=== PATIENT | female | born 1955 | race Caucasian/White ===

== ENCOUNTER 2017-08-04 11:54 | Inpatient (IN) | payer OTHER, BC ==
[~2017-08-04 11:54] MED LIST: CEFAZOLIN 2 GM/50 ML (PMX) 50 ML IVPB; TRANEXAMIC ACID 1,000 MG in DEXTROSE 5% 100 ML IV
[2017-08-04] MEDS: LACTATED RINGER'S 1,000 ML IV* (12:30)
[2017-08-04] MEDS ORDERED: TRANEXAMIC ACID 1,000 MG in D5W 100 ML AT INCISION X1 IVPB (12:30)
[2017-08-04] MEDS ORDERED: TRANEXAMIC ACID 1,000 MG in D5W 100 ML AT CLOSURE X1 IVPB (12:30)
[2017-08-04] MEDS ORDERED: ONDANSETRON 4 MG INJ (13:54)
[2017-08-04] MEDS ORDERED: FENTAnyl 50 MCG/ML VIAL ×2 (13:54→17:21)
[2017-08-04] MEDS ORDERED: DEXAMETHASONE 4 MG/ML 1 ML INJ (13:54)
[2017-08-04] MEDS ORDERED: GLYCOPYRROLATE 0.4 MG INJ (13:54)
[2017-08-04] MEDS ORDERED: BUPIVACAINE 0.75%/DEXT (SPINAL) 2 ML INJ (13:54)
[2017-08-04] MEDS ORDERED: NEOSTIGMINE 3 MG/3 ML SYRINGE (13:54)
[2017-08-04] MEDS ORDERED: MIDAZOLAM 1 MG/ML 2 ML INJ (13:54)
[2017-08-04] MEDS ORDERED: ROCURONIUM 50 MG INJ (13:54)
[2017-08-04] MEDS ORDERED: CEFAZOLIN 1 GM INJ (13:54)
[2017-08-04] MEDS ORDERED: PROPOFOL 20 ML (13:54)
[2017-08-04] MEDS: HYDROmorphONE 0.5 MG/0.5 ML SYG IV ×2 (14:49→23:35)
[2017-08-04] MEDS: POLYMYXIN/BACITRACIN 1L IRRIG IRR (17:37)
[2017-08-04] MEDS ORDERED: HYDROmorphONE (0.2 MG/ML) 10ML SYG IV ×2 (18:00)
[2017-08-04] MEDS ORDERED: EPHEDrine SULFATE 50 MG/5 ML SYG IV (18:00)
[2017-08-04] MEDS ORDERED: ALBUTEROL 0.083% (NEB) 2.5 MG/3 ML AMP HHN (18:00)
[2017-08-04] MEDS ORDERED: OXYCODONE/ACETAMINOPHEN (5/325) TAB PO ×2 (18:00)
[2017-08-04] MEDS ORDERED: IPRATROPIUM (NEB) 0.5 MG/2.5 ML AMP HHN (18:00)
[2017-08-04] MEDS ORDERED: LABETALOL HCL 20MG INJ IV (18:00)
[2017-08-04] MEDS ORDERED: DIPHENHYDRAMINE 50 MG INJ IV (18:00)
[2017-08-04] MEDS ORDERED: hydrALAzine 20 MG INJ IV (18:00)
[2017-08-04] MEDS ORDERED: ONDANSETRON 4 MG INJ IV (18:00)
[2017-08-04] MEDS ORDERED: MIDAZOLAM 1 MG/ML 2 ML INJ IV (18:00)
[2017-08-04] MEDS ORDERED: FENTAnyl 50 MCG/ML VIAL IV ×2 (18:00)
[2017-08-04] MEDS ORDERED: TRIMETHOBENZAMIDE 100 MG/ML VIAL IM ×2 (18:00→18:30)
[2017-08-04] MEDS ORDERED: NALOXONE (0.4 MG/ML) INJ IV (18:30)
[2017-08-04] MEDS ORDERED: oxyCODONE 5 MG TAB PO (18:30)
[2017-08-04] MEDS ORDERED: SENNA/DOCUSATE NA (8.6MG/50MG) TAB PO (18:30)
[2017-08-04] MEDS ORDERED: BISACODYL 10 MG SUPP PR (18:30)
[2017-08-04] MEDS ORDERED: NA PHOSPHATE/BIPHOS 133 ML ENEMA PR (18:30)
[2017-08-04] MEDS ORDERED: MAGNESIUM HYDROXIDE 30ML CUP PO (18:30)
[2017-08-04] MEDS: CEFAZOLIN 1 GM/50 ML (PMX) 50 ML IVPB (18:30)
[2017-08-04] MEDS ORDERED: NACL 0.9% 3 ML SYG IV (18:30)
[2017-08-04] MEDS ORDERED: SUGAMMADEX SODIUM 200 MG/2 ML VIAL IV (18:46)
[2017-08-04] MEDS: DOCUSATE SODIUM 100 MG CAP PO (19:25)
[2017-08-04] MEDS: ASPIRIN (EC) 325 MG TAB PO (19:25)
[2017-08-04] MEDS: MEPERIDINE 25 MG INJ IV (19:28)
[2017-08-04] MEDS: FENTAnyl 50 MCG/ML VIAL IV ×3 (19:28→20:43)
[2017-08-04] MEDS: HYDROmorphONE (0.2 MG/ML) 10ML SYG IV ×2 (19:29→20:31)
[2017-08-04] MEDS: CEFAZOLIN 2 GM/50 ML (PMX) 50 ML IVPB (19:29)
[2017-08-04] MEDS: ONDANSETRON 4 MG INJ IV ×2 (19:30→23:42)
[2017-08-04] MEDS: DIPHENHYDRAMINE 50 MG INJ IM (19:41)
[2017-08-04] MEDS: GABAPENTIN 100 MG CAP PO (20:44)
[2017-08-04] MEDS: SOD CHLORIDE 0.9% 1,000 ML IV (22:30)
[2017-08-04] MEDS: oxyCODONE 5 MG TAB PO (22:46)
[2017-08-04] MEDS: ACETAMINOPHEN 1000MG/100ML IV 100 ML IVPB (23:37)
[2017-08-05] MEDS: NICOTINE (14 MG/24 HR) PATCH TRANSDERM ×2 (00:06→08:58)
[2017-08-05] MEDS: HYDROmorphONE 0.5 MG/0.5 ML SYG IV ×7 (01:26→20:56)
[2017-08-05] MEDS: oxyCODONE 5 MG TAB PO ×6 (03:23→22:47)
[2017-08-05] MEDS: CEFAZOLIN 1 GM/50 ML (PMX) 50 ML IVPB ×2 (03:26→10:42)
[2017-08-05] MEDS: ALPRAZOLAM 0.25 MG TAB PO (03:50)
[2017-08-05 05:43] LABS: ADD MAN DIFF? NO
[2017-08-05 05:48] LABS: WHITE BLOOD COUNT 10.1 10^3/ul (4.8-10.8)
[2017-08-05 05:48] LABS: BASOPHILS % 0.1 % (0.0-2.0); EOSINOPHILS % 0.1 % (0.0-7.0); HEMATOCRIT 26.6 % (37.0-47.0); HEMOGLOBIN 9.1 g/dl (12.0-16.0); LYMPHOCYTES % 9.4 % (15.0-51.0); MEAN CORPUSCULAR HEMOGLOBIN 31.1 pg (29.0-33.0); MEAN CORPUSCULAR HGB CONC 34.2 g/dl (32.0-37.0); MEAN CORPUSCULAR VOLUME 90.8 fl (82.0-101.0); MEAN PLATELET VOLUME 9.3 fl (7.4-10.4); MONOCYTE # 0.7 10^3/ul (0.3-0.9); MONOCYTES % 7.3 % (0.0-11.0); NEUTROPHIL # 8.3 10^3/ul (1.6-7.5); NEUTROPHILS % 82.7 % (39.0-77.0); PLATELET COUNT 278 10^3/UL (140-415); RED BLOOD COUNT 2.93 10^6/ul (4.20-5.40); RED CELL DISTRIBUTION WIDTH 12.9 % (11.5-14.5)
[2017-08-05] MEDS ORDERED: hydrALAzine 20 MG INJ IV (06:30)
[2017-08-05] MEDS: ONDANSETRON 4 MG INJ IV ×2 (06:34→12:43)
[2017-08-05] MEDS: ACETAMINOPHEN 1000MG/100ML IV 100 ML IVPB ×3 (06:34→21:06)
[2017-08-05] MEDS: PANTOPRAZOLE (EC) 40 MG TAB PO (06:34)
[2017-08-05] MEDS: SOD CHLORIDE 0.9% 1,000 ML IV ×2 (06:34→17:04)
[2017-08-05] MEDS: BETHANECHOL 25 MG TAB PO (06:34)
[2017-08-05 06:39] LABS: ANION GAP 9 (8-16); BLOOD UREA NITROGEN 11 mg/dl (7-20); CALCIUM 8.3 mg/dl (8.4-10.2); CARBON DIOXIDE 29 mmol/L (21-31); CHLORIDE 104 mmol/L (97-110); GLUCOSE 114 mg/dl (70-220); POTASSIUM 4.4 mmol/L (3.5-5.1); SODIUM 138 mmol/L (135-144)
[2017-08-05 06:49] LABS: IRON 40 ug/dl (35-150)
[2017-08-05 07:01] LABS: % IRON SATURATION 15 % SAT (22-52); TOTAL IRON BINDING CAPACITY 262 ug/dl (241-421)
[2017-08-05 08:46] LABS: ADD UMIC NO; UR ASCORBIC ACID NEGATIVE (NEGATIVE); UR BILIRUBIN (Dip) NEGATIVE (NEGATIVE); UR BLOOD (Dip) NEGATIVE (NEGATIVE); UR CLARITY CLEAR (CLEAR); UR COLOR YELLOW (YELLOW); UR GLUCOSE (Dip) NEGATIVE (NEGATIVE); UR KETONES (Dip) NEGATIVE (NEGATIVE); UR LEUKOCYTE ESTERASE (Dip) NEGATIVE Leu/ul (NEGATIVE); UR NITRITE (Dip) NEGATIVE (NEGATIVE); UR SPECIFIC GRAVITY (Dip) 1.019 (1.003-1.030); UR TOTAL PROTEIN (Dip) NEGATIVE (NEGATIVE); UR UROBILINOGEN (Dip) NEGATIVE (NEGATIVE)
[2017-08-05] MEDS: GABAPENTIN 100 MG CAP PO ×4 (08:57→20:57)
[2017-08-05] MEDS: ASPIRIN (EC) 325 MG TAB PO (08:57)
[2017-08-05] MEDS: FERROUS FUMARATE (SR) TAB PO ×2 (08:58→20:56)
[2017-08-05] MEDS: DOCUSATE SODIUM 100 MG CAP PO ×2 (08:58→20:56)
[2017-08-05] MEDS: FLUTICASONE 0.05% 16 GM NAS SPRAY NASAL (08:59)
[2017-08-05] MEDS: KETOROLAC 30 MG INJ IV (15:41)
[2017-08-05] MEDS: LAMOTRIGINE 100 MG TAB PO (20:57)
[2017-08-05] MEDS: QUETIAPINE 100 MG TAB PO (20:57)
[2017-08-06] MEDS: KETOROLAC 30 MG INJ IV ×2 (02:55→12:31)
[2017-08-06] MEDS: ZOLPIDEM 5 MG TAB PO (03:07)
[2017-08-06] MEDS: PANTOPRAZOLE (EC) 40 MG TAB PO (03:07)
[2017-08-06 05:00] LABS: ADD MAN DIFF? NO
[2017-08-06 05:04] LABS: BASOPHILS % 0.2 % (0.0-2.0); EOSINOPHILS # 0.2 10^3/ul (0.0-0.5); EOSINOPHILS % 2.3 % (0.0-7.0); HEMATOCRIT 28.2 % (37.0-47.0); HEMOGLOBIN 9.4 g/dl (12.0-16.0); LYMPHOCYTES % 23.7 % (15.0-51.0); MEAN CORPUSCULAR HEMOGLOBIN 30.8 pg (29.0-33.0); MEAN CORPUSCULAR HGB CONC 33.3 g/dl (32.0-37.0); MEAN CORPUSCULAR VOLUME 92.5 fl (82.0-101.0); MEAN PLATELET VOLUME 9.4 fl (7.4-10.4); MONOCYTES % 11.1 % (0.0-11.0); NEUTROPHIL # 5.3 10^3/ul (1.6-7.5); NEUTROPHILS % 62.5 % (39.0-77.0); PLATELET COUNT 280 10^3/UL (140-415); RED BLOOD COUNT 3.05 10^6/ul (4.20-5.40); RED CELL DISTRIBUTION WIDTH 13.2 % (11.5-14.5)
[2017-08-06 05:04] LABS: WHITE BLOOD COUNT 8.5 10^3/ul (4.8-10.8)
[2017-08-06 05:30] LABS: ANION GAP 10 (8-16); BLOOD UREA NITROGEN 5 mg/dl (7-20); CARBON DIOXIDE 30 mmol/L (21-31); CHLORIDE 107 mmol/L (97-110); CREATININE 0.62 mg/dl (0.44-1.00); GLUCOSE 91 mg/dl (70-220); POTASSIUM 3.8 mmol/L (3.5-5.1); SODIUM 143 mmol/L (135-144)
[2017-08-06] MEDS: ACETAMINOPHEN 1000MG/100ML IV 100 ML IVPB ×2 (06:19→13:47)
[2017-08-06] MEDS: SOD CHLORIDE 0.9% 1,000 ML IV (07:53)
[2017-08-06] MEDS: oxyCODONE 5 MG TAB PO ×3 (07:55→16:05)
[2017-08-06] MEDS: FLUTICASONE 0.05% 16 GM NAS SPRAY NASAL (09:00)
[2017-08-06] MEDS: HYDROmorphONE 0.5 MG/0.5 ML SYG IV ×2 (09:57→13:45)
[2017-08-06] MEDS: GABAPENTIN 100 MG CAP PO ×2 (09:58→12:31)
[2017-08-06] MEDS: ASPIRIN (EC) 325 MG TAB PO (09:58)
[2017-08-06] MEDS: FERROUS FUMARATE (SR) TAB PO (09:58)
[2017-08-06] MEDS: DOCUSATE SODIUM 100 MG CAP PO (09:58)
[2017-08-06] MEDS: NICOTINE (14 MG/24 HR) PATCH TRANSDERM (09:58)
== END 2017-08-06 18:18 | disposition home health service (06) | DRG 470 ==
LOC: REC 11:54 → MS1 21:35
PROC: 0SRB04A Replacement of Left Hip Joint with Ceramic on Polyethylene Synthetic Substitute, Uncemented, Open Approach (ICD-10-PCS; principal; 2017-08-04 14:30)
DX: M16.12 Unilateral primary osteoarthritis, left hip (principal); I10 Essential (primary) hypertension; D64.9 Anemia, unspecified; F10.20 Alcohol dependence, uncomplicated; J45.909 Unspecified asthma, uncomplicated; Z98.1 Arthrodesis status
CPT/HCPCS: 73530; 80048; 81003; 82728; 83540; 85025; 86850; 86900; 86901; 87081; 87086; 88305; 88311; 97116; 97161; 97165; 97530